=== PATIENT | male | born 1945 | race Caucasian/White ===

== ENCOUNTER → 2019-10-09 08:39 | Outpatient (CLI) | payer MEDICARE, SELFPAY ==
--- NOTE | ~2019-10-09 | CT_ITS ---
EXAMINATION: CT abdomen wo con DATE: 10/09/2019 08:57 INDICATION: Cirrhosis of liver TECHNIQUE: Computed tomography (CT) of the abdomen was performed without intravenous contrast. Automa shyla exposure control and iterative reconstruction technique were employed. Exam dose: 862.02 mGy-cm total exam DLP. COMPARISON: 01/26/2013 CT abdomen pelvis . FINDINGS: There is an approximately 7 mm hyperdense lesion at the periphery of the medial segment lef t hepatic lobe is stable or slightly diminished in size since 08/01/2018, consistent with benign proc ess. There is surface nodularity of the liver consistent with clinical diagnosis of cirrhosis. There is splenomegaly, the spleen measuring up to 17.5 cm height. The gallbladder is present and appears unremarkable. No bile duct or pancreatic duct dilatation. No p ancreatic mass lesion or calcification is detected. No adrenal or renal space-occupying mass lesion. No renal or proximal or mid ureteral calculus or hyd roureteronephrosis. There is calcification of the abdominal aorta and iliac arteries; no evidence of abdominal aortic ane urysm. No intraperitoneal or retroperitoneal mass lesion or adenopathy or ascites. Right colectomy; no bowel obstruction is evident. There are some fluid levels in the colon which is a n abnormal finding unless there has been recent enemas. There is mild colonic diverticulosis. No CT e vidence of diverticulitis. No intraperitoneal free air is evident. Status post anterior abdominal wall repair. Diffuse idiopathic skeletal hyperostosis of the thoracic and lumbar spine. There is retrolisthesis at L2-3 and grade 1 anterolisthesis at L4-5. IMPRESSION: Stable hyperdense 7 mm lesion at periphery of medial segment left hepatic lobe, unchange d since 08/01/2018, consistent with benign process Cirrhosis and splenomegaly Status post right colectomy Interval development, which may be due to diarrhea or colitis Mild colonic diverticulosis; no evidence of diverticulitis Reviewed, dictated and finalized at [facility]. Reviewed, dictated and finalized at [facility]. [facility] IMPRESSION: Stable hyperdense 7 mm lesion at periphery of medial segment left hepatic lobe, unchanged since 08/01/2018, consistent with benign process Cirrhosis and splenomegaly Status post right colectomy Interval development, which may be due to diarrhea or colitis Mild colonic diverticulosis; no evidence of diverticulitis
== END ==
PROVIDERS: PCP Emergency Medicine; Visit Provider Emergency Medicine
DX: K74.60 Unspecified cirrhosis of liver (principal); K76.9 Liver disease, unspecified; R16.1 Splenomegaly, not elsewhere classified; Z90.49 Acquired absence of other specified parts of digestive tract; K57.90 Diverticulosis of intestine, part unspecified, without perforation or abscess without bleeding
CPT/HCPCS: 74150